=== PATIENT | female | born 2000 | race Caucasian/White ===

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

== ENCOUNTER → 2021-10-29 | Outpatient (CLI) | payer BC ==
--- NOTE | 2021-10-29 08:29 | CT ---
EXAMINATION TYPE: CT brain wo con DATE OF EXAM: 10/29/2021 COMPARISON: CT brain October 23, 2016 HISTORY: headaches and syncope CT DLP: 1121 mGycm. Automated Exposure Control for Dose Reduction was Utilized. TECHNIQUE: CT scan of the head is performed without contrast. FINDINGS: There is no acute intracranial hemorrhage, mass effect, or midline shift identified. The ventricles and sulci are within normal limits in size. Booker-white matter differentiation is maintain ed. Cerebellar tonsils extend to the level of foramen magnum but no greater than 5 mm inferior displa cement is seen to diagnose Chiari type I malformation. The globes are intact and the visualized sinus es are clear. IMPRESSION: Unremarkable study. No significant change from prior CT.
== END | disposition home or self-care (01) ==
LOC: RADCTMAIN 07:59
PROVIDERS: ATTEND Pediatrics
DX: R55 Syncope and collapse (principal); R05.9 Cough, unspecified
CPT/HCPCS: 70450